=== PATIENT | female | born 1985 | race American Indian/Alaskan Native ===

== ENCOUNTER 2017-01-23 16:55 | Emergency (ER) | payer MEDICAID ==
[2017-01-23 17:32] VITALS: BP 114/72
[2017-01-23 17:48] LABS: Bacteria,Urine 1+ /HPF (Negative); Bilirubin,Urine NEG (Negative); Blood,Urine NEG (Negative); Ketones,Urine NEG (Negative); Leukocyte Esterase,Urine NEG (Negative); Mucus,Urine 3+ /HPF; Nitrite,Urine NEG (Negative)
[2017-01-23 19:33] LABS: Basophils % (Auto) 0.4 % (0.0-1.8); Eosinophils % (Auto) 1.5 % (0.0-4.3); Hematocrit 33.6 % (30.3-42.9); Hemoglobin 11.6 gm/dl (10.1-14.3); Mean Corpuscular HGB Conc 35 % (30-34); Mean Corpuscular Hemoglobin 30 pg (28-32); Mean Corpuscular Volume 87 fl (79-97); Platelet Count 252 K/mm3 (140-440); Red Blood Count 3.87 M/mm3 (3.65-5.03); Red Cell Distribution Width 13.5 % (13.2-15.2); White Blood Count 8.8 K/mm3 (4.5-11.0)
[2017-01-23 19:52] LABS: Alanine Aminotransferase 9 units/L (7-56); Albumin 3.4 g/dL (3.9-5); Albumin/Globulin Ratio 0.9 %; Alkaline Phosphatase 91 units/L (35-129); Anion Gap 16 mmol/L; BUN/Creatinine Ratio 14; Blood Urea Nitrogen 7 mg/dL (7-17); Calcium 8.7 mg/dL (8.4-10.2); Carbon Dioxide 23 mmol/L (22-30); Chloride 102.8 mmol/L (98-107); Glucose 92 mg/dL (65-100); Lipase 17 units/L (13-60); Potassium 3.9 mmol/L (3.6-5.0); Sodium 138 mmol/L (137-145); Total Protein 7.2 g/dL (6.3-8.2)
== END 2017-01-23 19:10 | disposition left against medical advice (07) ==
LOC: ED 16:55
DX: M54.9 Dorsalgia, unspecified (principal); Z53.21 Procedure and treatment not carried out due to patient leaving prior to being seen by health care provider
CPT/HCPCS: 36415; 80053; 81001; 81025; 83690; 84702; 85025

== ENCOUNTER 2017-02-27 14:11 | Outpatient (CLI) | payer MEDICAID, OTHER ==
[2017-02-27] MEDS ORDERED: LACTATED RINGERS 500 ML IV ONE (14:56)
[2017-02-27 15:15] LABS: Urine Drugs of Abuse Note Disclamer
[2017-02-27 15:47] LABS: Bilirubin,Urine NEG (Negative); Blood,Urine NEG (Negative); Ketones,Urine TR mg/dL (Negative); Leukocyte Esterase,Urine NEG (Negative); Mucus,Urine FEW /HPF; Nitrite,Urine NEG (Negative); Protein,Urine <15 mg/dL mg/dL (Negative); RBC,Urine < 1.0 /HPF (0.0-6.0)
[2017-02-27 16:52] VITALS: BP 107/63
--- NOTE | 2017-02-28 10:39 | Ultrasound Report ---
OB ULTRASOUND History: well-being. Technique: Transabdominal ultrasound with Doppler interrogation. Gestation: Single Position: Cephalic Amniotic Fluid: Within normal limits CARLOS = not measured cm Placenta: Posterior Placental Grade: 0 Heart Rate: 150 BPM Cervical length: 3.6 cm (Normal > 3 cm) NEUROANATOMY VISUALIZED: Choroid Plexus Cisterna Magnum Cerebellum Lateral Ventricle ANATOMY VISUALIZED: Stomach Kidneys Bladder Diaphragm 4 Chamber Heart Heart 3 Vessel Cord Abd. Cord Insert SPINE VISUALIZED: Longitudinal Transverse BPD: 5.4 cm = 22 w 3 d HC: 19.9 cm = 22 w 0 d AC: 17.9 cm = 22 w 6 d FL: 3.8 cm = 22 w 0 d HC/AC Ratio: 1.11 Cephalic Index: 82.1 Estimated Weight: 501 grams LMP: Uncertain Clinical age = w d EDC: US Gest. Age = 22 w 2 d EDC: 07/01/17 IMPRESSION: Viable, single intrauterine as described. No abnormality is detected.
== END 2017-02-27 17:41 | disposition home or self-care (01) ==
LOC: EDSTATUS 14:40 → TRG 14:42
PROVIDERS: ATTEND Obstetrics & Gynecology
DX: O26.892 Other specified pregnancy related conditions, second trimester (principal); R10.9 Unspecified abdominal pain; Z3A.23 23 weeks gestation of pregnancy
CPT/HCPCS: 76805; 80307; 81001; 87086; 96360; J7120